=== PATIENT | female | born 1990 | race Caucasian/White ===

== ENCOUNTER 2021-08-14 09:12 | Emergency (ER) | payer BC, SELFPAY ==
[2021-08-14 10:05] VITALS: BP 115/71; PULSE 89; RESP 20; TEMP 36.9; O2SAT 100; BMI 27.4
--- NOTE | 2021-08-14 10:14 | HMH.EDUTC ---
[facility] [place] Clinical Impression: UTI (urinary tract infection) Qualifiers: Urinary tract infection type: site unspecified Hematuria presence: without hematuria Qualified Code(s): N39.0 - Urinary tract infection, site not specified Low back pain Qualifiers: Chronicity: acute Back pain laterality: bilateral Sciatica presence: with sciatica Sciatica laterality: bilateral sciatica Qualified Code(s): M54.42 - Lumbago with sciatica, left side Disposition: Home, Self-Care Condition on Discharge: Good Instructions: Urinary Tract Infection, Low Back Pain, DI for Low Back Pain, DI for Urinary Tract Infection (UTI) Additional Instructions: Drink plenty of fluids. Take the ibuprofen for pain that we prescribed. Take the medications as directed. Follow up with your regular doctor. GO TO THE ER FOR ANY WORSENING SYMPTOMS The pyridium will make your urine turn orange, this is an expected side effect. It will stain your clothes if it comes into contact with them. Prescriptions: Ibuprofen [Ibuprofen 600mg Tablet] 600 mg PO Q6HP PRN #30 tab PRN Reason: Mild Pain Transmission Status: Received by [id number] Ciprofloxacin HCl [Cipro 500mg Tab] 500 mg PO BID 7 Days #14 tab Transmission Status: Received by [id number] methylPREDNISolone [Medrol] 4 mg PO DIRECTED 6 Days #21 packet Transmission Status: Received by [id number] Phenazopyridine HCl [Pyridium 200mg Tablet] 200 pow PO TID #6 tab Transmission Status: Received by [id number] Referrals: Randall Holder [Primary Care Provider] - Time of Disposition: 10:54 Medical Decision Making - Medical Records Medical records reviewed: No: I reviewed the patient's medical records. - [place] Inquiry Pt receiving controlled substance: No Vital Signs: 08/14/21 10:05 08/14/21 10:49 Temperature 98.4 F 98.4 F Temperature Source Oral Pulse Rate 89 Pulse Rate [Right Brachial] 89 Respiratory Rate 20 20 Blood Pressure 115/71 Blood Pressure [Right Arm] 115/71 Blood Pressure Mean [Right Arm] 85 Blood Pressure Source [Right Arm] Automatic Cuff Blood Pressure Position [Right Arm] Sitting 02 Sat by Pulse Oximetry 100 Oxygen Delivery Method Room Air - Lab Data Lab results reviewed: Yes: I reviewed the patient's lab results. Lab Results 08/14/21 10:26: Urine Color Yellow, Urine Appearance Cloudy, Urine pH 7.0, Ur Specific [place] 1.025, Urine Protein Negative, Urine Glucose (UA) Negative, Urine Ketones Negative, Urine Blood Negative, Urine Nitrate Positive A, Urine Bilirubin Negative, Urine Urobilinogen 0.2, Ur Leukocyte Esterase Negative Orders (Tests/Meds): ED MEDICATIONS Discontinued Medications Generic Name Dose Route Start Last Admin Trade Name Rosendo PRN Reason Stop Dose Admin Ceftriaxone Sodium 1 gm 08/14/21 10:36 08/14/21 10:49 Ceftriaxone 1gm Vial IM 08/14/21 10:37 1 gm ONCE ONE Administration Ketorolac Tromethamine 60 mg 08/14/21 10:36 08/14/21 10:48 Ketorolac 60mg/2ml Vial IM 08/14/21 10:37 60 mg ONCE ONE Administration Lidocaine HCl 0 ml 08/14/21 10:36 08/14/21 10:49 Lidocaine 1% 5ml Pf Vial IM 08/14/21 10:37 2 ml ONCE ONE Administration ORDERS Category Date Time Status Urine Culture Stat Micro 08/14/21 10:10 [place] [facility] [place] - General Stated complaint: back pain x 2 days Time Seen by Provider: 08/14/21 10:14 - History of Present Illness Provider Complaint: She reports that since last night she has had low back pain that radiates down both legs. She denies urinary symptoms other than the low back pain. She states that she gets uti's regularly and they don't hurt like this does. She denies any fever/chills/nausea/vomiting/diarrhea. She states the pain radiates down both her legs when she bends or twists. She believes that she has pulled a muscle in her lower back. - Related Data Home Medications Medication Instructions Recorded
[2021-08-14 10:27] LABS: Apearance,Urine Cloudy (Clear); Bilirubin,Urine Negative (Negative); Blood, Urine Negative (Negative); Color,Urine Yellow (Yellow); Glucose,Urine (UA) Negative (Negative); Ketones,Urine Negative (Negative); Protein,Urine Negative (Negative); Specific Gravity, Urine 1.025 (1.005-1.030); UTC Leukocyte Esterase,Urine Negative (Negative); UTC Nitrate,Urine Positive (Negative); Urobilinogen,Urine 0.2 EU/dl (0.2)
[2021-08-14 10:49] VITALS: BP 115/71; PULSE 89; RESP 20; TEMP 36.9; O2SAT 100
== END 2021-08-14 11:01 | disposition home or self-care (01) ==
PROVIDERS: Emergency Provider Nurse Practitioner Family; PCP Pediatrics
DX: N30.00 Acute cystitis without hematuria (principal); B96.20 Unspecified Escherichia coli [E. coli] as the cause of diseases classified elsewhere; M54.42 Lumbago with sciatica, left side
CPT/HCPCS: 81003; 87086; 87088; 87186; 96372; 99202; G0463